=== PATIENT | female | born 1975 | race Two or more races ===

== ENCOUNTER 2023-10-04 14:48 | Emergency (ER) | payer BC, MEDICAID ==
[~2023-10-04] VITALS: Ht 160 cm; Wt 79.7 kg
[2023-10-04 15:00] VITALS: BP 103/64; PULSE 100; RESP 18; O2SAT 98
[2023-10-04 15:53] LABS: Basophils # (auto) 0.1 10 ^3/uL (0-0.2); Basophils % (auto) 0.9 % (0.0-2.0); Eosinophils # (auto) 0.1 10 ^3/uL (0-0.8); Eosinophils % (auto) 1.2 % (0.0-7.0); Hemoglobin 13.1 g/dL (12.2-16.2); Lymphocytes # (auto) 1.6 10 ^3/uL (0.4-5.4); Lymphocytes % (auto) 27.3 % (10.0-50.0); Mean Corpuscular Hemoglobin 28.5 pg (28.0-32.0); Mean Corpuscular Hgb Conc. 33.6 g/dL (32.0-36.0); Mean Corpuscular Volume 84.7 fL (80.0-100.0); Monocytes # (auto) 0.5 10 ^3/uL (0-1.3); Monocytes % (auto) 8.1 % (0.0-12.0); Neutrophils # (auto) 3.6 10 ^3/uL (1.6-8.6); Neutrophils % (auto) 62.5 % (37.0-80.0); Nucleated Red Blood Cells % 0.2 %; Red Cell Distribution Width 14.1 % (11.8-14.3); White Blood Cell 5.8 10^3/uL (4.4-10.8)
[2023-10-04 16:05] LABS: Chloride 108 mmol/L (98-107); Potassium 3.3 mmol/L (3.5-5.1); Sodium 141 mmol/L (136-145)
[2023-10-04 16:06] LABS: Anion Gap 6 (5-15); Calcium 9.3 mg/dL (8.7-10.4); Carbon Dioxide 27 mmol/L (20-30)
[2023-10-04 16:11] LABS: BUN/Creatinine Ratio 18.8 (10.0-20.0); Blood Urea Nitrogen 12 mg/dL (9-23); Glucose 109 mg/dL (74-106)
[2023-10-04] MEDS ORDERED: POTASSIUM EFFERVESENT TAB 25 MEQ PO ONE (16:45)
[2023-10-04] MEDS ORDERED: FUROSEMIDE 20 MG TAB PO ONE (16:45)
== END 2023-10-04 20:03 | disposition home or self-care (01) ==
LOC: ER 14:48
DX: M79.89 Other specified soft tissue disorders (principal)
CPT/HCPCS: 36415; 80048; 85025; 93970

== ENCOUNTER 2024-01-06 23:40 | Emergency (ER) | payer BC, MEDICAID ==
[~2024-01-06] VITALS: Ht 160 cm; Wt 72.0 kg
[2024-01-07] MEDS: HYDROcodone-ACET 5/325MG TAB PO ONE (00:12)
[2024-01-07] MEDS: DexAMETHasone SOD PHOS 10MG/1ML VIAL INJ IM ONE (00:13)
[2024-01-07] MEDS: diphenhdrAMINE HCL 50 MG/1 ML VL IM ONE (00:14)
[2024-01-07 01:16] VITALS: BP 146/63; PULSE 77; RESP 18; TEMP 97.9; O2SAT 97
[2024-01-07] MEDS ORDERED: HYDR-3682 PO (01:17)
== END 2024-01-07 02:35 | disposition home or self-care (01) ==
LOC: ER 23:40
DX: T78.40XA Allergy, unspecified, initial encounter (principal); Z88.8 Allergy status to other drugs, medicaments and biological substances; Z91.018 Allergy to other foods; X58.XXXA Exposure to other specified factors, initial encounter
CPT/HCPCS: 96372; 99284; J1100; J1200